=== PATIENT | female | born 1945 | race Caucasian/White ===

== ENCOUNTER 2019-05-17 02:38 | Inpatient (IN) | payer MEDICARE ==
[~2019-05-17] VITALS: Ht 170.2 cm; Wt 77.0 kg
[2019-05-17 04:59] VITALS: BP 111/51
[2019-05-17] MEDS ORDERED: LORazepam 2 MG/ML, 1ML IVPush PRN (05:00)
[2019-05-17] MEDS ORDERED: ONDANSETRON 2MG/ML, 2ML IVPush PRN (05:00)
[2019-05-17] MEDS ORDERED: QUIN20TA17 PO (05:26)
[2019-05-17] MEDS ORDERED: HYDR50TA3 PO (05:26)
[2019-05-17] MEDS ORDERED: POTA20TA91 PO (05:26)
[2019-05-17] MEDS ORDERED: LEVO125T5 PO (05:26)
[2019-05-17] MEDS ORDERED: ALPR0.254 PO (05:26)
[2019-05-17] MEDS ORDERED: ESCI10TA PO (05:26)
[2019-05-17] MEDS ORDERED: ATOR10TA9 PO (05:26)
[2019-05-17 07:40] VITALS: BP 123/64
[2019-05-17] MEDS ORDERED: morphine SULFATE 10 MG/ML, 1ML IVPush PRN (08:30)
[2019-05-17] MEDS: SODIUM CHLORIDE 0.9% 1,000 ML IV SCH ×2 (09:48→23:41)
[2019-05-17 13:34] VITALS: BP 128/74
[2019-05-17 18:31] VITALS: BP 140/66
[2019-05-18 00:55] VITALS: BP 123/66
[2019-05-18 05:39] LABS: BASOPHILS # (AUTO) 0.02 x10^3/uL (0-0.1); BASOPHILS % (AUTO) 1 % (0-1); EOSINOPHILS # (AUTO) 0.15 x10^3/uL (0-0.4); EOSINOPHILS % (AUTO) 3 % (1-7); LYMPHOCYTES # (AUTO) 1.17 x10^3/uL (1-3.4); LYMPHOCYTES % (AUTO) 23 % (22-44); MD NO; MEAN CORPUSCULAR HEMOGLOBIN 32.4 pg (27.0-34.8); MEAN CORPUSCULAR HGB CONC 33.5 g/dL (32.4-35.8); MEAN CORPUSCULAR VOLUME 96.8 fL (80-100); MEAN PLATELET VOLUME 9.4 fL (7.4-10.4); MONOCYTES # (AUTO) 0.58 x10^3/uL (0.2-0.8); MONOCYTES % (AUTO) 12 % (2-9); NEUTROPHILS % (AUTO) 62 % (42-75); PLATELET COUNT 251 x10^3/uL (130-400); RED BLOOD COUNT 3.22 x10^6/uL (3.82-5.3); RED CELL DISTRIBUTION WIDTH 12.7 % (9.6-15.2)
[2019-05-18 05:50] LABS: ANION GAP 4 mmol/L (5-15); CALCIUM 8.6 mg/dL (8.5-10.1); CHLORIDE 111 mmol/L (98-107); CREATININE 1.06 mg/dL (0.55-1.02)
[2019-05-18 08:45] VITALS: BP 125/68
[2019-05-18] MEDS: SODIUM CHLORIDE 0.9% 1,000 ML IV SCH (13:41)
[2019-05-18] MEDS: LEVOTHYROXINE 125 MCG TABLET PO SCH (13:41)
[2019-05-18] MEDS: ESCITALOPRAM 10MG TABLET PO SCH (13:42)
[2019-05-18 14:01] VITALS: BP 134/69
[2019-05-18 19:37] VITALS: BP 125/78
[2019-05-19 01:19] VITALS: BP 132/76
[2019-05-19] MEDS ORDERED: ACETAMINOPHEN 325 MG TABLET ONE (03:38)
[2019-05-19] MEDS ORDERED: ACETAMINOPHEN 325 MG TABLET PO PRN (04:00)
[2019-05-19] MEDS: SODIUM CHLORIDE 0.9% 1,000 ML IV SCH (05:00)
[2019-05-19 07:55] VITALS: BP 131/71
[2019-05-19] MEDS: ESCITALOPRAM 10MG TABLET PO SCH (08:10)
[2019-05-19] MEDS: LEVOTHYROXINE 125 MCG TABLET PO SCH (08:10)
[2019-05-19 13:48] VITALS: BP 110/66
== END 2019-05-19 15:56 | disposition home or self-care (01) | DRG 390 ==
LOC: 4NE 04:39
PROVIDERS: ADMIT Family Medicine; ATTEND Family Medicine
DX: K56.600 Partial intestinal obstruction, unspecified as to cause (principal); E03.9 Hypothyroidism, unspecified; E78.5 Hyperlipidemia, unspecified; F32.9 Major depressive disorder, single episode, unspecified; F41.9 Anxiety disorder, unspecified; I10 Essential (primary) hypertension; Z82.49 Family history of ischemic heart disease and other diseases of the circulatory system
CPT/HCPCS: 36415; 74018; 74250; 80048; 85025; G0378; J2060; J7030